=== PATIENT | female | born 1995 | race Hispanic/Latino ===

== ENCOUNTER 2022-06-05 04:48 | Emergency (ER) | payer MEDICAID ==
[~2022-06-05] VITALS: Ht 152.4 cm; Wt 54.4 kg
[~2022-06-05 04:48] MED LIST: IBUP-2070 PO
[2022-06-05 04:51] VITALS: BP 126/74
== END 2022-06-05 05:07 | disposition home or self-care (01) ==
LOC: EDH 04:48
DX: T16.1XXA Foreign body in right ear, initial encounter (principal); X58.XXXA Exposure to other specified factors, initial encounter; Y93.89 Activity, other specified; Y92.89 Other specified places as the place of occurrence of the external cause; Y99.8 Other external cause status